=== PATIENT | male | born 1980 | race Caucasian/White ===

== ENCOUNTER 2020-12-19 22:09 | Inpatient (IN) ==
[2020-12-19] MEDS ORDERED: LORazepam 2 MG/1 ML VIAL IV STA ×2 (22:34→22:36)
[2020-12-19] MEDS ORDERED: LABETALOL 20 MG/4 ML SYRINGE IV STA (22:34)
[2020-12-19] MEDS ORDERED: LORazepam 2 MG/1 ML VIAL ONE (22:34)
[2020-12-19] MEDS ORDERED: LACTATED RINGERS 1,000 ML IV ONE (22:34)
[2020-12-19] MEDS ORDERED: SODIUM CHLORIDE 0.9% 1,000 ML IV STA (22:36)
[2020-12-19 22:50] LABS: PT Patient Result 11.3 SECS (10.5-12.0); Partial Thromboplastin Time 24.2 SECS (23.8-32.1)
[2020-12-19 22:56] LABS: Alanine Aminotransferase 56 U/L (16-61); Albumin 4.5 G/DL (3.4-5.0); Alkaline Phosphatase 220 U/L (45-117); Aspartate Amino Transferase 27 U/L (0-37); Basophils % 0.1 % (0.0-0.8); Blood Urea Nitrogen 44 MG/DL (7-18); Carbon Dioxide 24 MMOL/L (21-32); Estimated Glom Filtration Rate 38 ML/MIN; Hemoglobin 17.9 GM/DL (14.0-18.0); Immature Granulocytes % 0.9 %; Immature Granulocytes Absolute 0.16 #; Lymphocytes # 0.8 10*3/uL (1.4-4.0); Lymphocytes % 4.5 % (21.2-54.2); Mean Corpuscular HGB Conc 29.6 GM/DL (32-36); Mean Corpuscular Volume 99.8 FL (87-102); Mean Platelet Volume 13.5 FL (9.6-12.0); Monocytes % 5.4 % (1.7-12.7); Neutrophils % 89.1 % (38.7-73.9); Osmolality,Calculated 350.1 MOS/KG (273-304); Platelet Count 387 T/CUMM (130-400); Potassium 4.9 MMOL/L (3.5-5.1); Red Blood Count 6.05 MC/CUMM (3.8-5.5); Red Cell Distribution Width 13.5 % (9.3-17.3); Sodium 121 MMOL/L (136-145); Total Protein 8.9 G/DL (6.4-8.2); White Blood Count 18.5 T/CUMM (4-12)
[2020-12-19 23:00] LABS: Allen Test Positive
[2020-12-19 23:01] LABS: ABG Base Excess -6.8 MMOL/L (-2.5-2.5); ABG Oxygen Saturation 88.4 % (95-100); ABG PCO2 39.6 MM HG (35-48); ABG PO2 62.6 MM HG (80-95); ABG TCO2 20.3 MMOL/L (23-27)
[2020-12-19 23:03] LABS: Hematocrit 60.4 VOL% (42.0-52.0)
[2020-12-19 23:03] LABS: Bilirubin,Urine Negative (Negative); Blood, Urine Large mg/dL (Negative); Glucose,Urine (UA) >=500 mg/dL (Negative); Ketones,Urine 5 mg/dL (Negative); Nitrite,Urine Negative (Negative); Protein,Urine Negative; RBC,Urine 12 /HPF (0-4); Urine Appearance CLEAR (Clear); Urine Color Straw (Yellow); Urine Specific Gravity 1.027 (1.001-1.035); Urine Urobilinogen < 2.0 EU/DL (0.2-1.0)
[2020-12-19 23:04] LABS: Glucose 1825 MG/DL (74-106)
[2020-12-19 23:05] LABS: Lymphocytes 1 % (20-55); Platelet Estimate Normal; Segmented Neutrophils 94 % (50-85)
[2020-12-19 23:06] LABS: Total Cells Counted 100
[2020-12-19 23:10] LABS: Barbiturates Screen,Urine Negative (Negative); Benzodiazepines Screen,Urine Negative (Negative); Cannabinoid Screen,Urine Negative (Negative); Opiate Screen,Urine Positive (Negative); Phencyclidine Screen,Urine Negative (Negative)
[2020-12-19] MEDS ORDERED: cefTRIAXone 1,000 MG in SODIUM CHLORIDE 0.9% 100 ML IV STA (23:10)
[2020-12-19] MEDS ORDERED: INSULIN REGULAR 100 UNIT/ML IV ONE (23:30)
[2020-12-19] MEDS ORDERED: DEXTROSE 50% 25 GM/50 ML VIAL IV PRN ×2 (23:30)
[2020-12-20] MEDS: INSULIN REGULAR DRIP 100 ML IV SCH ×2 (00:15→23:27)
[2020-12-20] MEDS ORDERED: ONDANSETRON 4 MG/2 ML VIAL IV PRN (00:27)
[2020-12-20] MEDS ORDERED: ALBUTEROL 2.5 MG/3 ML NEB RESP TX PRN (00:27)
[2020-12-20] MEDS ORDERED: MAGNESIUM SULF RIDER 4 GM/100 ML PREMIX IV PRN (00:53)
[2020-12-20] MEDS ORDERED: SODIUM CHLORIDE 0.9% 1,000 ML IV ONE (00:53)
[2020-12-20] MEDS ORDERED: POTASSIUM CHLORIDE RIDER 10 MEQ/100 ML PREMIX IV PRN (00:53)
[2020-12-20] MEDS ORDERED: SODIUM BICARB INJ 100 MEQ in STERILE WATER INJ 400 ML IV PRN (00:53)
[2020-12-20] MEDS ORDERED: SODIUM PHOSPHATE INJ 20.4 MMOL in SODIUM CHLORIDE 0.9% 250 ML IV PRN (00:53)
[2020-12-20] MEDS ORDERED: MAGNESIUM SULF RIDER 2 GM/50 ML PREMIX IV PRN (00:53)
[2020-12-20 01:52] LABS: Basophils % 0.1 % (0.0-0.8); Hematocrit 53.3 VOL% (42.0-52.0); Hemoglobin 17.6 GM/DL (14.0-18.0); Immature Granulocytes % 0.6 %; Immature Granulocytes Absolute 0.12 #; Lymphocytes # 1.8 10*3/uL (1.4-4.0); Lymphocytes % 8.2 % (21.2-54.2); Mean Corpuscular Volume 88.4 FL (87-102); Mean Platelet Volume 12.7 FL (9.6-12.0); Monocytes % 7.3 % (1.7-12.7); Neutrophils % 83.8 % (38.7-73.9); Platelet Count 347 T/CUMM (130-400); Red Blood Count 6.03 MC/CUMM (3.8-5.5); Red Cell Distribution Width 13.5 % (9.3-17.3); White Blood Count 21.4 T/CUMM (4-12)
[2020-12-20 02:13] LABS: Bilirubin,Total 0.6 MG/DL (0.20-1.00); Calcium 9.7 MG/DL (8.5-10.1); Osmolality,Calculated 344.8 MOS/KG (273-304); Potassium 3.8 MMOL/L (3.5-5.1); Total Protein 8.4 G/DL (6.4-8.2)
[2020-12-20 02:32] LABS: Lymphocytes 5 % (20-55); Platelet Estimate Normal; Segmented Neutrophils 91 % (50-85); Total Cells Counted 100
[2020-12-20] MEDS: SODIUM CHLORIDE 0.9% 1,000 ML IV SCH ×2 (02:34→04:34)
[2020-12-20] MEDS ORDERED: LORazepam 2 MG/1 ML VIAL IV ONE ×2 (04:15→15:44)
[2020-12-20 04:39] LABS: ABG Base Excess -3.9 MMOL/L (-2.5-2.5); ABG HCO3 21.1 MMOL/L (20-26); ABG Oxygen Saturation 95.3 % (95-100); ABG PCO2 38.7 MM HG (35-48); ABG PH 7.355 (7.35-7.45); ABG PO2 81.4 MM HG (80-95); ABG TCO2 22.3 MMOL/L (23-27)
[2020-12-20] MEDS ORDERED: SODIUM CHLORIDE 0.9% 1,000 ML IV SCH (06:00)
[2020-12-20] MEDS: LORazepam 2 MG/1 ML VIAL IV PRN ×3 (06:10→12:20)
[2020-12-20 06:37] LABS: Calcium 8.8 MG/DL (8.5-10.1); Osmolality,Calculated 347.6 MOS/KG (273-304); Potassium 4.6 MMOL/L (3.5-5.1)
[2020-12-20] MEDS ORDERED: SODIUM CHLORIDE 0.45% 2,000 ML IV ONE (06:49)
[2020-12-20] MEDS ORDERED: LORazepam 2 MG/1 ML VIAL ONE ×2 (09:19→12:13)
[2020-12-20 09:22] LABS: Calcium 8.6 MG/DL (8.5-10.1); Osmolality,Calculated 344.3 MOS/KG (273-304); Potassium 5.3 MMOL/L (3.5-5.1)
[2020-12-20] MEDS: SODIUM CHLORIDE 0.45% 1,000 ML IV SCH ×3 (10:00→18:34)
[2020-12-20 13:12] LABS: Calcium 8.7 MG/DL (8.5-10.1); Osmolality,Calculated 340.1 MOS/KG (273-304); Potassium 4.6 MMOL/L (3.5-5.1)
[2020-12-20 17:20] LABS: Osmolality,Calculated 346.3 MOS/KG (273-304); Potassium 4.8 MMOL/L (3.5-5.1)
[2020-12-20 21:24] LABS: Calcium 8.8 MG/DL (8.5-10.1); Osmolality,Calculated 349.2 MOS/KG (273-304); Potassium 5.3 MMOL/L (3.5-5.1)
[2020-12-20] MEDS: hydrALAZINE 20 MG/1 ML VIAL IV PRN (21:35)
[2020-12-20] MEDS: INSULIN LISPRO 100 UNIT/ML SUBCUT SCH ×3 (21:38→23:26)
[2020-12-20 22:36] LABS: Bilirubin,Urine Negative (Negative); Blood, Urine Large mg/dL (Negative); Glucose,Urine (UA) >=500 mg/dL (Negative); Granular Casts,Urine 3 /LPF (0-1); Ketones,Urine 20 mg/dL (Negative); Mucus,Urine Occasional /LPF (Occasional); Nitrite,Urine Negative (Negative); Protein,Urine 100 MG/DL; RBC,Urine 3 /HPF (0-4); Squamous Epithelial Cell,Urine Occasional /HPF (0-10); Urine Appearance CLEAR (Clear); Urine Color Yellow (Yellow); Urine Specific Gravity 1.029 (1.001-1.035); Urine Urobilinogen < 2.0 EU/DL (0.2-1.0)
[2020-12-20] MEDS: cefTRIAXone 1,000 MG in SODIUM CHLORIDE 0.9% 100 ML IV SCH (23:25)
[2020-12-21] MEDS: INSULIN LISPRO 100 UNIT/ML SUBCUT SCH ×9 (01:19→23:18)
[2020-12-21] MEDS: SODIUM CHLORIDE 0.45% 1,000 ML IV SCH ×4 (02:34→20:08)
[2020-12-21] MEDS ORDERED: OLANZapine 10 MG VIAL IM ONE (05:09)
[2020-12-21 05:23] LABS: Basophils # 0.1 10*3/uL (0.0-0.2); Basophils % 0.2 % (0.0-0.8); Hematocrit 51.4 VOL% (42.0-52.0); Hemoglobin 17.4 GM/DL (14.0-18.0); Immature Granulocytes % 0.5 %; Immature Granulocytes Absolute 0.14 #; Lymphocytes # 2.6 10*3/uL (1.4-4.0); Lymphocytes % 10.3 % (21.2-54.2); Mean Corpuscular HGB Conc 33.9 GM/DL (32-36); Mean Corpuscular Volume 89.2 FL (87-102); Mean Platelet Volume 12.6 FL (9.6-12.0); Monocytes % 5.3 % (1.7-12.7); Neutrophils % 83.7 % (38.7-73.9); Red Blood Count 5.76 MC/CUMM (3.8-5.5); Red Cell Distribution Width 13.9 % (9.3-17.3); White Blood Count 25.6 T/CUMM (4-12)
[2020-12-21 05:24] LABS: Platelet Count 240 T/CUMM (130-400)
[2020-12-21 05:32] LABS: Platelet Estimate Adequate
[2020-12-21 05:40] LABS: Calcium 9.4 MG/DL (8.5-10.1); Osmolality,Calculated 348.2 MOS/KG (273-304); Potassium 3.8 MMOL/L (3.5-5.1)
[2020-12-21] MEDS ORDERED: LORazepam 2 MG/1 ML VIAL ONE ×2 (08:31→16:36)
[2020-12-21] MEDS: LORazepam 2 MG/1 ML VIAL IV PRN ×3 (08:37→16:39)
[2020-12-21] MEDS: hydrALAZINE 20 MG/1 ML VIAL IV PRN ×2 (08:37→13:36)
[2020-12-21 09:21] LABS: Bilirubin,Urine Negative (Negative); Blood, Urine Large mg/dL (Negative); Glucose,Urine (UA) 150 mg/dL (Negative); Ketones,Urine Negative (Negative); Nitrite,Urine Negative (Negative); Protein,Urine 100 MG/DL; RBC,Urine 87 /HPF (0-4); Squamous Epithelial Cell,Urine Occasional /HPF (0-10); Uric Acid Crystals,Urine Moderate /HPF (<1); Urine Appearance CLOUDY (Clear); Urine Color Amber (Yellow); Urine Specific Gravity 1.018 (1.001-1.035); Urine Urobilinogen < 2.0 EU/DL (0.2-1.0)
[2020-12-21] MEDS ORDERED: FUROSEMIDE 40 MG/4 ML VIAL IV ONE (11:27)
[2020-12-21 12:39] LABS: Calcium 9.3 MG/DL (8.5-10.1); Potassium 4.7 MMOL/L (3.5-5.1)
[2020-12-21 16:14] LABS: Calcium 8.9 MG/DL (8.5-10.1); Osmolality,Calculated 340.9 MOS/KG (273-304); Potassium 4.8 MMOL/L (3.5-5.1)
[2020-12-21 19:50] LABS: Calcium 8.9 MG/DL (8.5-10.1); Osmolality,Calculated 342.2 MOS/KG (273-304); Potassium 5.1 MMOL/L (3.5-5.1)
[2020-12-21] MEDS: cefTRIAXone 1,000 MG in SODIUM CHLORIDE 0.9% 100 ML IV SCH (23:10)
[2020-12-22] MEDS: SODIUM CHLORIDE 0.45% 1,000 ML IV SCH ×4 (02:06→12:01)
[2020-12-22] MEDS: INSULIN LISPRO 100 UNIT/ML SUBCUT SCH ×3 (04:38→07:45)
[2020-12-22 04:45] LABS: Basophils % 0.2 % (0.0-0.8); Eosinophils % 0.2 % (0.00-10.9); Hematocrit 51.7 VOL% (42.0-52.0); Hemoglobin 16.4 GM/DL (14.0-18.0); Immature Granulocytes % 0.4 %; Immature Granulocytes Absolute 0.08 #; Lymphocytes # 3.1 10*3/uL (1.4-4.0); Mean Corpuscular HGB Conc 31.7 GM/DL (32-36); Mean Platelet Volume 12.9 FL (9.6-12.0); Monocytes % 4.4 % (1.7-12.7); Neutrophils % 78.8 % (38.7-73.9); Platelet Count 161 T/CUMM (130-400); Red Blood Count 5.56 MC/CUMM (3.8-5.5); Red Cell Distribution Width 14.1 % (9.3-17.3); White Blood Count 19.4 T/CUMM (4-12)
[2020-12-22 05:29] LABS: Bilirubin,Total 0.7 MG/DL (0.20-1.00); Calcium 8.9 MG/DL (8.5-10.1); Osmolality,Calculated 337.9 MOS/KG (273-304); Potassium 4.1 MMOL/L (3.5-5.1); Total Protein 6.6 G/DL (6.4-8.2)
[2020-12-22] MEDS: DEXTROSE 5% NACL 0.45% 1,000 ML IV SCH ×5 (08:50→20:45)
[2020-12-22] MEDS ORDERED: PANTOPRAZOLE 40 MG VIAL IV SCH (09:00)
[2020-12-22] MEDS: INSULIN REGULAR DRIP 100 ML IV SCH ×2 (09:01→17:53)
[2020-12-22] MEDS: amLODIPine 5 MG TABLET PO SCH (12:45)
[2020-12-22 13:49] LABS: Hepatitis B Core IgM Quant 0.12 Index; Hepatitis B Surface Ag Quant 0.32 Index; Hepatitis B Surface Ag Result Non-Reactive (NonReactive); Hepatitis C Virus Ab Quant 0.17 Index; Hepatitis C Virus Ab Result Non-Reactive (NonReactive)
[2020-12-22 14:45] LABS: Calcium 8.4 MG/DL (8.5-10.1); Potassium 3.6 MMOL/L (3.5-5.1)
[2020-12-22 14:57] LABS: Risk Ratio 4.5; VLDL Cholesterol 29.6 MG/DL
[2020-12-22] MEDS: DEXT 5% NACL 0.45% KCL 20 MEQ 20 MEQ/1,000 ML BAG IV SCH (20:03)
[2020-12-23] MEDS: DEXT 5% NACL 0.45% KCL 20 MEQ 20 MEQ/1,000 ML BAG IV SCH ×3 (00:16→09:42)
[2020-12-23 00:22] LABS: Osmolality,Calculated 316.9 MOS/KG (273-304); Potassium 3.8 MMOL/L (3.5-5.1)
[2020-12-23] MEDS: DEXTROSE 5% NACL 0.45% 1,000 ML IV SCH ×6 (00:46→13:41)
[2020-12-23 04:56] LABS: Basophils % 0.1 % (0.0-0.8); Eosinophils # 0.1 10*3/uL (0.0-0.87); Eosinophils % 0.7 % (0.00-10.9); Hematocrit 38.3 VOL% (42.0-52.0); Immature Granulocytes % 0.6 %; Immature Granulocytes Absolute 0.08 #; Lymphocytes # 3.4 10*3/uL (1.4-4.0); Lymphocytes % 27.3 % (21.2-54.2); Mean Corpuscular HGB Conc 32.4 GM/DL (32-36); Mean Corpuscular Volume 92.3 FL (87-102); Monocytes % 6.1 % (1.7-12.7); Neutrophils % 65.2 % (38.7-73.9); Red Cell Distribution Width 13.3 % (9.3-17.3)
[2020-12-23 04:59] LABS: Hemoglobin 12.4 GM/DL (14.0-18.0); Platelet Count 104 T/CUMM (130-400); Red Blood Count 4.15 MC/CUMM (3.8-5.5); White Blood Count 12.6 T/CUMM (4-12)
[2020-12-23 05:01] LABS: Albumin 2.1 G/DL (3.4-5.0); Bilirubin,Total 0.6 MG/DL (0.20-1.00); Calcium 7.8 MG/DL (8.5-10.1); Osmolality,Calculated 315.7 MOS/KG (273-304); Potassium 3.9 MMOL/L (3.5-5.1)
[2020-12-23] MEDS ORDERED: ACETAMINOPHEN 325 MG TABLET PO PRN (05:05)
[2020-12-23] MEDS: amLODIPine 5 MG TABLET PO SCH (08:06)
[2020-12-23] MEDS ORDERED: POTASSIUM CHLORIDE 20 MEQ TABLET PO PRN (08:06)
[2020-12-23] MEDS: PANTOPRAZOLE 40 MG TABLET PO SCH (08:06)
[2020-12-23] MEDS: INSULIN REGULAR DRIP 100 ML IV SCH ×2 (08:10→09:41)
[2020-12-23 14:21] LABS: Calcium 7.9 MG/DL (8.5-10.1); Osmolality,Calculated 302.8 MOS/KG (273-304); Potassium 3.9 MMOL/L (3.5-5.1)
[2020-12-23] MEDS: SODIUM CHLORIDE 0.45% 1,000 ML IV SCH (15:47)
[2020-12-23] MEDS: INSULIN REGULAR 100 UNIT/ML SUBCUT SCH ×2 (15:54→19:59)
[2020-12-23] MEDS ORDERED: INSULIN REGULAR 100 UNIT/ML SUBCUT SCH (16:00)
[2020-12-23 18:46] LABS: Osmolality,Calculated 300.8 MOS/KG (273-304); Potassium 4.3 MMOL/L (3.5-5.1)
[2020-12-23] MEDS ORDERED: ZALEPLON 5 MG CAPSULE PO PRN (18:52)
[2020-12-24] MEDS: SODIUM CHLORIDE 0.45% 1,000 ML IV SCH (00:06)
[2020-12-24] MEDS: INSULIN REGULAR 100 UNIT/ML SUBCUT SCH ×4 (00:06→12:18)
[2020-12-24 04:09] VITALS: BP 148/85
[2020-12-24 05:27] LABS: Basophils % 0.1 % (0.0-0.8); Eosinophils # 0.2 10*3/uL (0.0-0.87); Eosinophils % 1.6 % (0.00-10.9); Hematocrit 39.3 VOL% (42.0-52.0); Hemoglobin 12.4 GM/DL (14.0-18.0); Immature Granulocytes % 0.8 %; Immature Granulocytes Absolute 0.08 #; Lymphocytes % 21.3 % (21.2-54.2); Mean Corpuscular HGB Conc 31.6 GM/DL (32-36); Mean Corpuscular Volume 92.3 FL (87-102); Mean Platelet Volume 13.6 FL (9.6-12.0); Monocytes % 8.6 % (1.7-12.7); Neutrophils % 67.6 % (38.7-73.9); Red Blood Count 4.26 MC/CUMM (3.8-5.5); Red Cell Distribution Width 12.5 % (9.3-17.3); White Blood Count 9.5 T/CUMM (4-12)
[2020-12-24 05:37] LABS: Platelet Count 81 T/CUMM (130-400)
[2020-12-24 05:50] LABS: Platelet Estimate Decreased
[2020-12-24 06:04] LABS: Calcium 8.2 MG/DL (8.5-10.1); Osmolality,Calculated 302.4 MOS/KG (273-304); Potassium 4.4 MMOL/L (3.5-5.1)
[2020-12-24] MEDS: amLODIPine 5 MG TABLET PO SCH (08:07)
[2020-12-24] MEDS: PANTOPRAZOLE 40 MG TABLET PO SCH (08:07)
[2020-12-24] MEDS ORDERED: INSULIN GLARGINE 100 UNIT/ML SUBCUT SCH (13:30)
== END 2020-12-24 15:25 | disposition home or self-care (01) | DRG 638 ==
LOC: EDUNIT# → EDBD → N.ED 22:09 → SUATTDRO 12-20 00:27 → N.EDINP 12-20 00:27 → N.CC 12-20 01:13
PROVIDERS: ADMIT Internal Medicine; ATTEND Internal Medicine